=== PATIENT | female | born 1950 | race Caucasian/White ===

== ENCOUNTER 2019-11-14 12:51 | Emergency (ER) | payer MEDICARE, OTHER ==
[~2019-11-14] VITALS: Ht 162.6 cm; Wt 68.2 kg
[2019-11-14 13:45] LABS: BASOPHILS % (AUTO) 0.4 % (0-1); EOSINOPHILS # (AUTO) 0.1 X10'3 (0-0.9); HEMATOCRIT 40.5 % (35.0-45.0); LYMPHOCYTES # (AUTO) 2.1 X10'3 (1.1-4.8); MEAN CORPUSCULAR HEMOGLOBIN 27.9 PG (27.0-31.0); MEAN CORPUSCULAR HGB CONC 32.2 g/dL (33.0-36.5); MEAN CORPUSCULAR VOLUME 86.7 FL (78-98); MEAN PLATELET VOLUME 8.6 FL (7.4-10.4); MONOCYTES # (AUTO) 0.6 X10'3 (0-0.9); MONOCYTES % (AUTO) 7.7 % (2-12); NEUTROPHILS # (AUTO) 4.4 X10'3 (1.8-7.7); NEUTROPHILS % (AUTO) 60.9 % (42-75); PLATELET COUNT 274 X10'3 (140-440); RED BLOOD COUNT 4.67 X10'6 (4.20-5.60); RED CELL DISTRIBUTION WIDTH 15.4 % (11.5-14.5); WHITE BLOOD COUNT 7.3 X10'3 (4.5-11.0)
[2019-11-14 13:57] LABS: PARTIAL THROMBOPLASTIN TIME 27 SECONDS (22-32)
[2019-11-14 13:58] LABS: ALANINE AMINOTRANSFERASE 19 U/L (12-78); ALBUMIN 3.9 G/DL (3.4-5.0); ALBUMIN/GLOBULIN RATIO 1.1 (1.1-1.5); ALKALINE PHOSPHATASE 118 IU/L (46-116); ANION GAP 10 (8-16); ASPARTATE AMINO TRANSFERASE 20 U/L (10-37); BILIRUBIN,TOTAL 0.4 MG/DL (0.1-1.0); BLOOD UREA NITROGEN 12 MG/DL (7-18); BUN/CREATININE RATIO 11.9 (6.6-38.0); CHLORIDE 104 MMOL/L (99-107); CREATININE 1.01 MG/DL (0.40-0.90); GLUCOSE 89 MG/DL (70-104); POTASSIUM 3.7 MMOL/L (3.5-5.1); SODIUM 143 MMOL/L (135-145); TOTAL CARBON DIOXIDE 28.7 MMOL/L (24-32); TOTAL PROTEIN 7.4 G/DL (6.4-8.2); eGFR 55 ML/MIN
[2019-11-14] MEDS ORDERED: sucralfate 1gm/10ml UD suspension PO SCH (14:25)
[2019-11-14] MEDS ORDERED: mag hydrox/Alum hydrox/simeth 30ml oral suspension PO ONE (14:25)
[2019-11-14] MEDS ORDERED: pantoprazole 40 MG vial IV ONE (14:25)
[2019-11-14] MEDS ORDERED: aspirin 81mg tab.chew PO ONE (14:25)
[2019-11-14] MEDS ORDERED: LIDOcaine Viscous 15ml cup MM PRN (14:25)
[2019-11-14] MEDS ORDERED: sucralfate 1gm/10ml UD suspension PO ONE (14:25)
[2019-11-14] MEDS ORDERED: famotidine/PF 10 mg/ml inj IV ONE (14:25)
[2019-11-14] MEDS ORDERED: famotidine 20mg tablet PO ONE (14:50)
[2019-11-14] MEDS ORDERED: OMEP20CA15 PO (14:50)
[2019-11-14] MEDS ORDERED: pantoprazole 40mg Tablet.DR PO ONE (14:50)
[2019-11-14] MEDS ORDERED: FAMO20TA44 PO (14:50)
[2019-11-14 15:06] VITALS: BP 174/86
== END 2019-11-14 15:04 | disposition home or self-care (01) ==
LOC: ER 12:51
DX: K21.9 Gastro-esophageal reflux disease without esophagitis (principal); M54.9 Dorsalgia, unspecified; R68.84 Jaw pain; I10 Essential (primary) hypertension; E11.9 Type 2 diabetes mellitus without complications; Z79.899 Other long term (current) drug therapy
CPT/HCPCS: 36415; 71045; 80053; 84484; 85025; 85610; 85730; 93005; 99285